=== PATIENT | male | born 1975 | race African-American/Black ===

== ENCOUNTER 2022-05-10 12:42 | Emergency (ER) | payer OTHER ==
[~2022-05-10] VITALS: Ht 188 cm; Wt 104.3 kg
== END 2022-05-10 15:18 | disposition home or self-care (01) ==
LOC: ER 12:42
DX: U07.1 COVID-19 (principal)

== ENCOUNTER 2022-05-11 14:37 | Outpatient (CLI) | payer OTHER | END 2022-05-11 15:45 | disposition home or self-care (01) | LOC: ASH CLINIC 14:37 | PROVIDERS: ATTEND General Practice | DX: U07.1 COVID-19 (principal) ==

== ENCOUNTER 2025-02-25 12:21 | Emergency (ER) | payer OTHER ==
[~2025-02-25] VITALS: Ht 188 cm; Wt 101.2 kg
[2025-02-25] MEDS ORDERED: ACETAMINOPHEN 500 MG GEL..CAP PO ONE ×2 (14:00→14:02)
[2025-02-25 15:36] LABS: COVID-19 AG POSITIVE (NEGATIVE)
[2025-02-25 15:38] LABS: INFLUENZA A AG NEGATIVE (NEGATIVE); INFLUENZA B AG NEGATIVE (NEGATIVE)
== END 2025-02-25 16:35 | disposition home or self-care (01) ==
LOC: ER 12:37
PROVIDERS: General Practice
DX: U07.1 COVID-19 (principal)